=== PATIENT | male | born 1980 | race Caucasian/White ===

== ENCOUNTER 2023-10-04 12:32 | Outpatient (OUT) | payer BC, SELFPAY ==
--- NOTE | 2023-10-04 12:56 | XR_ITS ---
The [address] [address] Patient Name: FRANCOISE AHUMADA MRN: [id number] date: 1980 Sex: M Assigned Patient Location: [facility] Current Patient Location: Accession/Order Number: [id number] Exam Date: 10/04/2023 12:50 Report Date: 10/05/2023 08:12 At the request of: THAIS LAUGHLIN Procedure: XR knee RT 3V PROCEDURE: XR knee RT 3V HISTORY: Knee Pain M25.569 ; acute posterior right knee pain; no known injury COMPARISON: None. FINDINGS: BONES:No fracture, acute abnormality, or significant arthropathy. SOFT TISSUES:No visible soft tissue swelling. EFFUSION:None visible. OTHER: Negative. XR/XR knee RT 3V IMPRESSION: 1. No acute bone abnormality or significant degenerative changes. Electronically authenticated by: CHILO RAY Date: 10/05/2023 08:12
== END 2023-10-04 12:33 | disposition home or self-care (01) ==
LOC: RAD 12:36
PROVIDERS: PCP Family Medicine; Visit Provider Family Medicine
DX: M25.561 Pain in right knee (principal)
CPT/HCPCS: 73562

== ENCOUNTER 2023-10-21 16:37 | Emergency (ER) | payer BC, SELFPAY ==
[2023-10-21 16:44] VITALS: BP 142/98; PULSE 99; RESP 20; TEMP 37.2; O2SAT 100; BMI 21.1
--- NOTE | 2023-10-21 16:49 | ED_ITS ---
Documented by User: GLENIS Fuller 10/21/23 17:09 HPI - Extremity Injury (Lower) General Chief Complaint: Extremity Problem, Nontraumatic Stated Complaint: knee pain/swollen Time Seen by Provider: 10/21/23 16:40 Source: patient History of Present Illness HPI Narrative: patient is a 42-year-old male presents to the Emergency Room with concerns of right knee pain. Patient denies focal injury but states he is having swelling and pain since mid September. Was seen by his family doctor with outpatient x- rays and referred to physical therapy. Patient states his knee is too painful for therapy and swells with activity. Patient presents today with a knee brace limping noting difficulty ambulating. He denies any fevers or chills. She denies any new injuries since his outpatient x-ray on 10/04/23. Patient denies any other polyarthralgias. Reports right knee being only painful joint and worse with activity or swelling.patient denies hip pain. Pt taking diclofenac and wearing knee brace without relief Injury: Right: knee Relieving factors: Reports nothing Exacerbating factors: Reports weight bearing and movement Associated symptoms: Reports snap/pop sensation (+ sharp with bending. ) and swelling Related Data Home Medications Medication Instructions Recorded Confirmed diclofenac sodium 75 mg 75 mg PO Q12H 10/21/23 10/21/23 tablet,delayed release Previous Rx's Medication Instructions Recorded prednisone 20 mg tablet 40 mg (2 x 20 mg) PO DAILY 5 days 10/21/23 #10 tabs Allergies Allergy/AdvReac Type Severity Reaction Status Date / Time amoxicillin Allergy Severe Verified 10/21/23 16:49 Review of Systems ROS Constitutional Denies: fever or chills Ears, nose, mouth, and throat Denies: throat pain or neck pain Cardiovascular Denies: chest pain Respiratory Denies: shortness of breath Gastrointestinal Denies: abdominal pain, nausea or vomiting Musculoskeletal Reports: extremity pain and joint pain; Denies: back pain, neck pain or extremity swelling Integumentary/Breast Denies: rash, itching or redness Neurological Denies: headache or numbness in extremities Psychiatric Denies: anxiety Hematologic/Lymphatic Denies: easy bruising Exam Narrative Exam Narrative: Vital signs reviewed and nurse's notes. The patient is not hypoxic. General: Alert, no acute distress, patient resting comfortably Skin: warm, intact, no pallor noted Head: Normocephalic, atraumatic Eye: Normal conjunctiva, no exudates Respiratory: No acute distress, lungs CTA Musculoskeletal: No evidence of deformity to the right knee. There is mild amount of swelling with joint effusion. There is no ecchymosis. No erythema or warmth noted. DP and PT pulses are intact 2+. Normal sensation, normal capillary refill less than 2 seconds. There is no cyanosis or mottling noted. The patient has tenderness to medial and lateral joint line of the right knee. The patient has no laxity with varus or valgus stressing.difficult to test anterior drawer with knee effusion. Compartment soft, no significant warmth. Passive range of motion 10-90 tolerable with pain noted on and range of motion sharp, catching locking sensation reported. Patient was able to extend leg off the cart without difficulty. No tenderness noted to the 5th MT, midfoot, ankle or proximal fibular area. There is no pain with calcaneal squeeze, achilles tendon is intact and no defect is palpated. The patient has no pelvic instability. The patient has no shortening or rotation noted to the bilateral lower extremities. Neurological: alert and orient x4, normal sensory and motor observed. Psychiatric: Cooperative MDM - Extremity Injury (Lower) MDM Narrative Medical decision making narrative: reviewed patient's x-ray from 10/04/23, negative for arthritis, patient has recurrent effusion with activity history concerning for possible internal derangement with cartilage tear discussed. He denies polyarthralgias. Discussed pain with swelling in trying to maintain activities.recommended nonweightbearing strict ice and elevation, will be started on prednisone taper as he has been taking diclofenac without relief hold diclofenac and may take [id number] Tylenol. Patient given IM Toradol injection today and [place] tablet once here and one to take at home and sixty-eight hours. Discussed expected symptoms of pain improvement with offloading knee joint pending follow-up with orthopedics which was made for Tuesday at 10 AM. The patient is to followup with Dr. Munoz Tuesday at 10 AM, patient agrees. primary care physician in next 2-3 days or to return to the emergency department should any of the signs or symptoms worsen or new symptoms develop. Patient had questions answered. The patient agrees with the following Diagnosis and Treatment plan and the patient will be discharged home. Discharge Plan Discharge Chief Complaint: Extremity Problem, Nontraumatic Clinical Impression: Effusion of knee joint right, Acute internal derangement of right knee, Acute pain of right knee Patient Disposition: Home, Self-Care Time of Disposition Decision: 16:54 Condition: Good Mode of Transportation: Private Vehicle Prescriptions / Home Meds: New prednisone 20 mg tablet 40 mg PO DAILY 5 Days Qty: 10 0RF No Action diclofenac sodium 75 mg tablet,delayed release (DR/EC) 75 mg PO Q12H Instructions: Swollen Knee Joint (ED) Additional Instructions: stop diclofenac will taking prednisone, take arthritis strength Tylenol as directed with steroid. Stand Alone Forms: Portal Instructions Referrals: Obi Cheney MD [Primary Care Provider] - 1 week Ed Munoz MD [Physician] - 10/24/23 10:00 am Discharge Date/Time: 10/21/23 17:15 Documented by User: Maximo Antonio MD 10/21/23 20:16 HPI - Extremity Injury (Lower) General Chief Complaint: Extremity Problem, Nontraumatic Stated Complaint: knee pain/swollen Time Seen by Provider: 10/21/23 16:40 Related Data Home Medications Medication Instructions Recorded Confirmed diclofenac sodium 75 mg 75 mg PO Q12H 10/21/23 10/21/23 tablet,delayed release Previous Rx's Medication Instructions Recorded prednisone 20 mg tablet 40 mg (2 x 20 mg) PO DAILY 5 days 10/21/23 #10 tabs Allergies Allergy/AdvReac Type Severity Reaction Status Date / Time amoxicillin Allergy Severe Verified 10/21/23 16:49 MDM - Extremity Injury (Lower) MDM Narrative Medical decision making narrative: reviewed patient's x-ray from 10/04/23, negative for arthritis, patient has recurrent effusion with activity history concerning for possible internal derangement with cartilage tear discussed. He denies polyarthralgias. Discussed pain with swelling in trying to maintain activities.recommended nonweightbearing strict ice and elevation, will be started on prednisone taper as he has been taking diclofenac without relief hold diclofenac and may take [id number] T ylenol. Patient given IM Toradol injection today and [place] tablet once here and one to take at home and sixty-eight hours. Discussed expected symptoms of pain improvement with offloading knee joint pending follow-up with orthopedics which was made for Tuesday at 10 AM. The patient is to followup with Dr. Munoz Tuesday at 10 AM, patient agrees. primary care physician in next 2-3 days or to return to the emergency department should any of the signs or symptoms worsen or new symptoms develop. Patient had questions answered. The patient agrees with the following Diagnosis and Treatment plan and the patient will be discharged home. I, Dr Antonio, have reviewed the above progress note and course of action in the ER; agree with the above. I have gone over history and physical, and discussed disp osition and treatment plan with the patient. Discharge Plan Discharge Chief Complaint: Extremity Problem, Nontraumatic Clinical Impression: Effusion of knee joint right, Acute internal derangement of right knee, Acute pain of right knee Patient Disposition: Home, Self-Care Time of Disposition Decision: 16:54 Condition: Good Mode of Transportation: Private Vehicle Prescriptions / Home Meds: New prednisone 20 mg tablet 40 mg PO DAILY 5 Days Qty: 10 0RF No Action diclofenac sodium 75 mg tablet,delayed release (DR/EC) 75 mg PO Q12H Instructions: Swollen Knee Joint (ED) Additional Instructions: stop diclofenac will taking prednisone, take arthritis strength Tylenol as directed with steroid. Stand Alone Forms: Portal Instructions Referrals: Obi Cheney MD [Primary Care Provider] - 1 week Ed Munoz MD [Physician] - 10/24/23 10:00 am Discharge Date/Time: 10/21/23 17:15
[2023-10-21] MEDS: PREDNISONE 20 MG TABLET 40 MG PO (17:00)
[2023-10-21] MEDS: HYDROCODONE/ACET 5-325 MG TABLET 2 TAB PO (17:00)
[2023-10-21] MEDS: KETOROLAC TROMETHAMINE 60 MG/2 ML VIAL IM (17:01)
== END 2023-10-21 17:15 | disposition home or self-care (01) ==
PROVIDERS: Emergency Provider Emergency Medicine; PCP Family Medicine
DX: M23.91 Unspecified internal derangement of right knee (principal); M25.561 Pain in right knee; M25.461 Effusion, right knee; Z79.899 Other long term (current) drug therapy
CPT/HCPCS: 96372; 99284

== ENCOUNTER 2023-10-24 10:04 | Outpatient (OUT) | payer BC, SELFPAY ==
[2023-10-24 10:37] LABS: Erythrocyte Sedimentation Rate 30 mm/hr (<=15)
[2023-10-24 11:44] LABS: C Reactive Protein 0.78 mg/dL (<=0.50)
[2023-10-25 19:07] LABS: Antinuclear Antibodies, IFA Negative (.)
== END 2023-10-24 10:05 | disposition home or self-care (01) ==
LOC: LAB 10:05
PROVIDERS: PCP Family Medicine; Visit Provider Orthopaedic Surgery
DX: M25.561 Pain in right knee (principal)
CPT/HCPCS: 36415; 85652; 86038; 86140; 86430; 86431

== ENCOUNTER 2023-11-02 10:42 | Outpatient (OUT) | payer BC, SELFPAY ==
--- NOTE | 2023-11-02 10:46 | MR_ITS ---
The [address] [address] Patient Name: FRANCOISE AHUMADA MRN: [id number] date: 1980 Sex: M Assigned Patient Location: MRI Current Patient Location: MRI Accession/Order Number: [id number] Exam Date: 11/02/2023 11:30 Report Date: 11/02/2023 12:24 At the request of: CHILO CROSS Procedure: MR knee RT wo con EXAM: MR knee RT wo con REASON FOR EXAM: Right knee pain M25.561. TECHNIQUE: Multiplanar, multisequence imaging of the right knee was performed without contrast COMPARISON: Plain radiographs 10/04/2023. FINDINGS: Study mildly degraded by motion. Laterally, the iliotibial band, fibular collateral ligament, popliteus tendon and biceps tendon are intact. The ACL is intact. There is some free edge blunting and intermediate signal involving the lateral meniscal body potentially reflecting mild free edge fraying. No discrete tear or displaced meniscal fragment identified. There is globular intrasubstance signal involving the posterior horn root attachment without definite tear. Low-grade chondrosis of the lateral compartment. Medially, the medial collateral ligament is intact. The PCL is intact with mild thickening and intermediate signal favoring mucoid degeneration. Some fluid: Signal could reflect early intrasubstance ganglion cystic changes. No tear. The medial meniscus demonstrates normal morphology and with globular intrasubstance signal, which does not meet MRI criteria for tear. No displaced meniscal fragment, perimeniscal cyst meniscal extrusion identified. Low-grade chondrosis of the medial compartment. The extensor mechanism is intact. The patellofemoral cartilage is grossly intact. The bone marrow signal is without fracture. Moderate size joint effusion decompresses into a tiny Foote's cyst. The regional musculature is without muscle strain or tendon tear. MR/MR knee RT wo con IMPRESSION: 1. Free edge fraying of the lateral meniscal body. No displaced meniscal fragment identified. 2. Mucoid degeneration/intrasubstance ganglion cystic changes of the ACL and PCL. 3. Low-grade chondrosis in the medial and lateral compartments. 4. Joint effusion and tiny Foote's cyst. Electronically authenticated by: ZORAIDA ARIAS Date: 11/02/2023 12:24
== END 2023-11-02 10:43 | disposition home or self-care (01) ==
LOC: MRI 10:42
PROVIDERS: PCP Family Medicine; Visit Provider Orthopaedic Surgery
DX: M25.561 Pain in right knee (principal); M25.461 Effusion, right knee
CPT/HCPCS: 73721

== ENCOUNTER 2024-06-09 08:56 | Outpatient (OUT) | payer BC, SELFPAY ==
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
--- NOTE | 2024-06-09 08:59 | CT_ITS ---
The [address] [address] Patient Name: FRANCOISE AHUMADA MRN: [id number] date: 1980 Sex: M Assigned Patient Location: CT Current Patient Location: Accession/Order Number: [id number] Exam Date: 06/09/2024 10:05 Report Date: 06/13/2024 04:22 At the request of: THAIS LAUGHLIN Procedure: CT abdomen pelvis w con EXAMINATION: CT abdomen pelvis w con HISTORY: Varicocele I86.1 COMPARISON: No relevant comparison available. TECHNIQUE: Axial, Coronal, and Sagittal images were obtained without and/or with IV contrast as indicated by examination type. Dose reduction techniques were achieved by using automated exposure control and/or adjustment of mA and/or kV according to patient size and/or use of iterative reconstruction technique. FINDINGS: LUNG BASES: No visible pulmonary or pleural disease. LIVER: No enlargement, atrophy, suspicious density, or significant focal lesion. BILIARY: No dilatation or calcification. PANCREAS: No lesion, fluid collection, or abnormal duct dilatation. SPLEEN: No enlargement or focal lesion. ADRENALS: No mass or enlargement. KIDNEYS: No mass, obstruction, or calcification. BOWEL/MESENTERY: No visible mass, obstruction, or bowel wall thickening. AORTA/VASCULAR: No aneurysm or dissection. RETROPERITONEUM: No mass or adenopathy. LYMPH NODES: No adenopathy. URINARY BLADDER: No visible focal wall thickening, lesion, or calculus. PELVIC ORGANS: No visible mass. Pelvic organs appropriate for patient age. ABDOMINAL WALL: No mass or hernia. BONES: No bony lesion or fracture. OTHER: Negative. CT/CT abdomen pelvis w con IMPRESSION: 1. No abnormal or suspicious findings to account for patient's varicoceles. Electronically authenticated by: CHILO RAY Date: 06/13/2024 04:22
== END 2024-06-09 08:57 | disposition home or self-care (01) ==
LOC: CT 08:56
PROVIDERS: PCP Family Medicine; Visit Provider Family Medicine
DX: I86.1 Scrotal varices (principal)
CPT/HCPCS: 74177; Q9967